=== PATIENT | female | born 1995 | race African-American/Black ===

== ENCOUNTER 2016-12-11 15:45 | Emergency (ER) | payer OTHER, MEDICAID ==
[2016-12-11 15:52] VITALS: PULSE 71; TEMP 98.4
[2016-12-11 16:12] VITALS: BP 114/85; RESP 16; O2SAT 95
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
== END 2016-12-11 17:24 | disposition home or self-care (01) ==
DX: S16.1XXA Strain of muscle, fascia and tendon at neck level, initial encounter (principal); S29.012A Strain of muscle and tendon of back wall of thorax, initial encounter; R78.81 Bacteremia; V49.20XA Unspecified car occupant injured in collision with unspecified motor vehicles in nontraffic accident, initial encounter; Y92.410 Unspecified street and highway as the place of occurrence of the external cause